=== PATIENT | female | born 1980 | race Two or more races ===

== ENCOUNTER 2024-04-09 21:56 | Emergency (ER) | payer BC, MEDICAID, OTHER ==
[~2024-04-09] VITALS: Ht 152.4 cm; Wt 72.7 kg
[2024-04-09] MEDS: CYCLOBENZAPRINE HCL 10 MG TAB PO ONE (23:50)
[2024-04-10] MEDS ORDERED: CYCL-837 PO (05:16)
[2024-04-10] MEDS ORDERED: IBUP-1454 PO (05:16)
[2024-04-10] MEDS: IBUPROFEN 600 MG TAB PO ONE (05:45)
[2024-04-10 06:00] VITALS: BP 137/68; PULSE 78; RESP 16; TEMP 97.8; O2SAT 97
== END 2024-04-10 06:38 | disposition home or self-care (01) ==
LOC: EDBD 21:56 → ER 21:56
DX: M25.512 Pain in left shoulder (principal); R51.9 Headache, unspecified; V49.9XXA Car occupant (driver) (passenger) injured in unspecified traffic accident, initial encounter; Y93.89 Activity, other specified; Y92.89 Other specified places as the place of occurrence of the external cause; Y99.8 Other external cause status
CPT/HCPCS: 70450; 70486; 71250; 72125; 73030; 74176